=== PATIENT | female | born 1995 | race Caucasian/White ===

== ENCOUNTER 2017-08-19 08:42 | Emergency (ER) | payer MEDICAID ==
[~2017-08-19] VITALS: Ht 160 cm; Wt 61.2 kg
[2017-08-19 08:50] VITALS: BP_SYST 142
--- NOTE | 2017-08-19 08:50 | NUR ---
Pt report received. Pt c/o sharp lower abdominal pain since this AM. +Nausea and diarrhea. Pt currently on menstral cycle.
--- NOTE | 2017-08-19 08:50 | NUR ---
PATIENT PLACED IN BED 6, ENDORSED CARE TO NEGRA HERNANDEZ .
--- NOTE | 2017-08-19 09:00 | NUR ---
Dr. Junior at bedside.
[2017-08-19] MEDS ORDERED: ONDANSETRON 4 MG ODT TAB PO ONE (09:15)
[2017-08-19] MEDS ORDERED: IBUPROFEN 600 MG TABLET PO ONE (09:15)
--- NOTE | 2017-08-19 09:15 | NUR ---
Lab at bedside.
[2017-08-19 09:24] LABS: BILIRUBIN,URINE NEGATIVE (NEGATIVE); BLOOD, URINE 2+ (NEGATIVE); CLARITY/URINE CLOUDY (CLEAR); COLOR,URINE YELLOW (YELLOW); GLUCOSE,URINE NEGATIVE (NEGATIVE); KETONES,URINE NEGATIVE (NEGATIVE); LEUKOCYTE ESTERASE ,URINE NEGATIVE (NEGATIVE); NITRITE, URINE NEGATIVE (NEGATIVE); PH,URINE 7.5 (5.0-8.0); PROTEIN URINE NEGATIVE (NEGATIVE); UROBILINOGEN,URINE 0.2 (0.2-1.0)
[2017-08-19 09:33] LABS: BASOPHILS # (AUTO) 0.1 K/uL (0.0-0.2); BASOPHILS % (AUTO) 0.8 % (0.0-2.0); EOSINOPHILS # (AUTO) 0.1 K/uL (0.0-0.4); EOSINOPHILS % (AUTO) 1.2 % (0.0-4.0); HEMATOCRIT 41.6 % (36-48); HEMOGLOBIN 14.1 g/dL (12.0-16.0); LYMPHOCYTES # (AUTO) 1.6 K/uL (1.0-5.5); LYMPHOCYTES % (AUTO) 13.6 % (20.5-51.5); MEAN CORPUSCULAR HEMOGLOBIN 29 pg (27-31); MEAN CORPUSCULAR HGB CONC 34 % (32-36); MEAN CORPUSCULAR VOLUME 86 fL (79.0-98.0); MONOCYTES # (AUTO) 0.8 K/uL (0.0-1.0); MONOCYTES % (AUTO) 6.7 % (1.7-9.3); NEUTROPHILS # (AUTO) 9.4 K/uL (1.8-7.7); NEUTROPHILS % (AUTO) 77.7 % (40.0-70.0); PLATELET COUNT (AUTO) 422 K/uL (130-430); RED BLOOD CELL COUNT(AUTO) 4.86 MIL/uL (4.2-6.2); RED CELL DISTRIBUTION WIDTH 12.1 % (9.0-15.0)
[2017-08-19 09:50] LABS: RBC,URINE >100 /HPF (0-3)
[2017-08-19 09:51] LABS: BACTERIA,URINE MODERATE /HPF (None Seen)
[2017-08-19 09:52] LABS: URINE AMORPHOUS PHOSPHATES 4+ /HPF (None Seen)
[2017-08-19 09:53] LABS: MUCUS,URINE None Seen /LPF (None Seen)
[2017-08-19 09:56] LABS: CALCIUM 9.4 mg/dL (8.4-11.0); CREATININE 0.69 mg/dL (0.55-1.30); POTASSIUM 3.9 mmol/L (3.5-5.1)
[2017-08-19 09:59] LABS: INR 1.1 (0.8-1.2); PROTHROMBIN TIME 10.9 SECS (9.5-12.5)
[2017-08-19 10:00] LABS: ALBUMIN 4.1 g/dL (3.4-4.8); TOTAL BILIRUBIN 0.6 mg/dL (0.0-1.0)
[2017-08-19 11:10] VITALS: BP_SYST 132
--- NOTE | 2017-08-19 11:10 | NUR ---
Patient given written and verbal discharge instructions and verbalizes understanding. ER MD discussed with patient the results and treatment provided. Patient in stable condition. ID arm band removed. Rx of Zofran and Ibuprofen given. Patient educated on pain management and to follow up with PMD. Pain Scale 2/10. Opportunity for questions provided and answered. Medication side effect fact sheet provided.
== END 2017-08-19 11:10 | disposition home or self-care (01) ==
LOC: SED 08:42
DX: N94.6 Dysmenorrhea, unspecified (principal); J45.909 Unspecified asthma, uncomplicated
CPT/HCPCS: 36415; 74176; 80053; 81000; 81025; 82150; 83690; 85025; 85610; 87086; 99285; Q0162